=== PATIENT | female | born 1955 | race Caucasian/White ===

== ENCOUNTER → 2017-07-05 | Outpatient (CLI) | payer OTHER ==
--- NOTE | 2017-07-05 11:39 | REPMRS ---
Patient History The patient states she had a clinical breast exam in June 2017. Patient is postmenopausal. Digital Mammo Screening Bilat: July 05, 2017 - Exam #: [id number] Bilateral CC and MLO view(s) were taken. Technologist: Adrianna Champagne, Technologist Prior study comparison: May 29, 2016, bilateral digital mammo screening bilat performed at [facility]. March 24, 2015, bilateral digital mammo screening bilat performed at [facility]. March 17, 2014, bilateral digital mammo screening bilat performed at [facility]. FINDINGS: The breast tissue is almost entirely fat. There has been no change in the appearance of the mammogram from the prior studies. There is no interval development of dominant mass, architectural distortion, or clustered microcalcification typical of malignancy. ASSESSMENT: BI-RADS/ACR category 1 mammogram. Negative. Recommendation Routine screening mammogram of both breasts in 1 year (for women over age 40). This mammogram was interpreted with the aid of an FDA-approved computer-aided dectection system. Electronically Signed By: David Weaver MD 07/05/17 [id number]
== END ==
LOC: M RAD 10:50
PROVIDERS: ATTEND Internal Medicine
DX: Z12.31 Encounter for screening mammogram for malignant neoplasm of breast (principal)

== ENCOUNTER → 2018-07-03 | Outpatient (CLI) | payer MEDICARE, OTHER | LOC: M RAD 14:34 | DX: Z12.31 Encounter for screening mammogram for malignant neoplasm of breast (principal) | CPT/HCPCS: 77067 ==

== ENCOUNTER → 2019-07-07 | Outpatient (CLI) | payer MEDICARE, OTHER ==
--- NOTE | 2019-07-07 13:45 | REPMRS ---
Patient History The patient states she had a clinical breast exam in December 2018. No known family history of cancer. Digital Mammo Screening Bilat: July 07, 2019 - Exam #: [id number] Bilateral CC and MLO view(s) were taken. Technologist: Adrianna Champagne, Technologist Prior study comparison: July 03, 2018, bilateral digital mammo screening bilat performed at [facility]. July 05, 2017, bilateral digital mammo screening bilat performed at [facility]. May 29, 2016, bilateral digital mammo screening bilat performed at [facility]. FINDINGS: There are scattered fibroglandular densities. The craniocaudad 2-D and 3-D views demonstrate a possible spiculated somewhat angular density in the left medial breast , anterior to middle third at approximately 9 o'clock. This merits further evaluation. This is not seen on the orthogonal projection images. It may be summation artifact. There has been no other change in the appearance of the mammogram from the prior studies. There is a mild amount of scattered fibroglandular density which is fairly symmetric. There is no other interval development of dominant mass, architectural distortion, or grouped microcalcification suggestive of malignancy. 3-D tomosynthesis shows no additional findings. Assessment: BI-RADS/ACR category 0 mammogram, Incomplete: Need additional imaging evaluation and/or prior mammograms for comparison. Recommendation Ultrasound and special view mammogram of the left breast. This patient's Lifetime Breast Cancer Risk is estimated at 6.9 %. This mammogram was interpreted with the aid of an FDA-approved computer-aided dectection system. Electronically Signed By: David Weaver MD 07/07/19 [id number]
== END ==
LOC: M RAD 12:21
PROVIDERS: ATTEND Internal Medicine
DX: Z12.31 Encounter for screening mammogram for malignant neoplasm of breast (principal); N63.20 Unspecified lump in the left breast, unspecified quadrant; N60.21 Fibroadenosis of right breast; N60.22 Fibroadenosis of left breast

== ENCOUNTER → 2019-08-03 | Outpatient (CLI) | payer MEDICARE, OTHER ==
--- NOTE | 2019-08-03 09:52 | REP ---
DIAGNOSTIC MAMMOGRAM LEFT BREAST: Diagnostic mammogram left breast performed with spot compression views as well as a left spot CC tomographic sequence. Comparison is made with multiple prior exams most recently 07/07/2019 which showed a possible small spiculated density in the left breast anteriorly. Today's additional views do not show evidence of a spiculated nodule. Fibroglandular pattern is unchanged when compared to prior studies dating back to 2017. IMPRESSION: ACR 2 benign. No persistent spiculated nodule on today's spot compression views. The fibroglandular appearance is unchanged since 2017. Recommend followup mammogram in 1 year. Electronically Signed by Kenney Toledo MD 08/03/2019 03:48 P
== END ==
LOC: M RAD 08:54
DX: N60.22 Fibroadenosis of left breast (principal)

== ENCOUNTER → 2020-12-05 | Outpatient (CLI) | payer MEDICARE, OTHER ==
--- NOTE | 2020-12-05 15:29 | REPMRS ---
Patient History The patient states she had a clinical breast exam in 12/2019 Patient is postmenopausal. No known family history of cancer. 3D TOMOSYNTHESIS WAS PERFORMED. [facility] lifetime risk for breast cancer is 6.5%. Volpara breast density b. Digital Woman Screen Mammo: December 05, 2020 - Exam #: [id number] Bilateral CC and MLO view(s) were taken. Technologist: Lynne Jung, Technologist Prior study comparison: August 03, 2019, left breast digital mammo diagnostic unilateral, performed at [facility]. July 07, 2019, bilateral digital mammo screening bilat, performed at [facility]. FINDINGS: There are scattered fibroglandular densities. There has been no change in the appearance of the mammogram from the prior studies. There is a mild amount of residual fibroglandular tissue which is fairly symmetric. There is no interval development of dominant mass, architectural distortion, or clustered microcalcification suggestive of malignancy. Assessment: BI-RADS/ACR category 1 mammogram. Negative Mammogram. Recommendation Routine screening mammogram in 1 year (for women over age 40). This mammogram was interpreted with the aid of an FDA-approved computer-aided dectection system. Electronically Signed By: Kenney Toledo MD 12/05/20 0735
== END ==
LOC: M WHC 13:45
PROVIDERS: ATTEND Nurse Practitioner Family
DX: Z12.31 Encounter for screening mammogram for malignant neoplasm of breast (principal)

== ENCOUNTER → 2021-12-28 | Outpatient (CLI) | payer MEDICARE, OTHER | LOC: M WHC 15:52 | PROVIDERS: ATTEND Nurse Practitioner Family | DX: Z12.31 Encounter for screening mammogram for malignant neoplasm of breast (principal) ==